=== PATIENT | female | born 1990 ===

== ENCOUNTER 2019-10-22 22:00 | Outpatient (CLI) | payer SELFPAY ==
[2019-10-22 22:54] VITALS: BP 112/70
== END 2019-10-23 00:30 | disposition home or self-care (01) ==
LOC: TRG 22:00 → APU 22:02 → TRG 10-23 00:30
PROVIDERS: ATTEND Obstetrics & Gynecology
DX: O47.1 False labor at or after 37 completed weeks of gestation (principal); Z3A.39 39 weeks gestation of pregnancy
CPT/HCPCS: 59025

== ENCOUNTER 2019-10-25 04:14 | Inpatient (IN) | payer MEDICAID, OTHER ==
[2019-10-25] MEDS ORDERED: TERBUTALINE 1 MG/1 ML INJ SUB-Q PRN (05:14)
[2019-10-25] MEDS ORDERED: TERBUTALINE 1 MG/1 ML INJ IVP PRN (05:14)
[2019-10-25] MEDS ORDERED: ePHEDrine SULFATE 50 MG/1 ML INJ IV PRN ×2 (05:14→08:57)
[2019-10-25] MEDS ORDERED: BUTORPHANOL 2 MG/1 ML INJ IV PRN ×2 (05:14)
[2019-10-25] MEDS ORDERED: MINERAL OIL 30 ML ORAL LIQD PO PRN (05:14)
[2019-10-25] MEDS ORDERED: fentaNYL 100 MCG/2 ML INJ IV PRN (05:14)
[2019-10-25] MEDS ORDERED: LIDOCAINE (2%) 20 MG/1 ML VIAL 20 ML MDV INFILTRATI ONE (05:14)
[2019-10-25] MEDS ORDERED: AMPICILLIN/NS 2 GM/100 ML 2 GM/100 ML BAG IV ONE (05:18)
[2019-10-25] MEDS ORDERED: OXYTOCIN DRIP 30 UNITS/500 ML BAG IV SCH ×2 (06:00)
[2019-10-25] MEDS ORDERED: OXYTOCIN 20 UNIT/1000ML DRIP 20 UNITS/1,000 ML BAG IV SCH (06:00)
[2019-10-25] MEDS ORDERED: LACTATED RINGERS 1,000 ML IV SCH (06:00)
--- NOTE | 2019-10-25 06:35 | History and Physical Report ---
History of Present Illness Date of examination: 10/25/19 Date of admission: 10/25/19 05:14 Chief complaint: Pt with c/o uc. She denies vag bleeding or leakage of vag fluids. History of present illness: 28 y/o female presented to the triage with c/o uc. Pt states her LMP was 01/08/19. She initiated her care at [facility] at 5 mos gestation per pt. She denies any problems throughout her preg. Med/ surg/ social hx unremarkable per pt. Pt states her mother has DM. Pt's records are unavailable. Past History Past Surgical History: no surgical history Family/Genetic History: diabetes Social history: no significant social history - Obstetrical History Expected Date of Delivery: 10/25/19 Actual Gestation: 40 Week(s) 0 Day(s) : 1 Para: 0 Hx # Term Pregnancies: 0 Number of Pregnancies: 0 Spontaneous Abortions: 0 Induced : 0 Number of Living Children: 0 Medications and Allergies Allergies Allergy/AdvReac Type Severity Reaction Status Date / Time No Known Allergies Allergy Verified 10/25/19 05:19 Active Meds: Active Medications Butorphanol Tartrate (Stadol) 1 mg IV Q2H PRN PRN Reason: Pain, Moderate(4-6) LABOR PAIN Butorphanol Tartrate (Stadol) 2 mg IV Q2H PRN PRN Reason: Pain , Severe (7-10) Ephedrine Sulfate (Ephedrine Sulfate) 10 mg IV Q2M PRN PRN Reason: Hypotension Fentanyl (Sublimaze) 100 mcg IV Q2H PRN PRN Reason: Pain,Severe (7-10) LABOR PAIN Oxytocin/Sodium Chloride (Pitocin/Ns 20 Unit/1000ml Drip) 20 units in 1,000 mls @ 125 mls/hr IV DIRECT VANI Oxytocin/Sodium Chloride (Pitocin/Ns 30 Unit/500ml) 30 units in 500 mls @ 1 mls/hr IV TITR VANI; Protocol Oxytocin/Sodium Chloride (Pitocin/Ns 30 Unit/500ml) 30 units in 500 mls @ 2 mls/hr IV TITR VANI; Protocol Lactated Ringer's (Lactated Ringers) 1,000 mls @ 125 mls/hr IV DIRECT VANI Ampicillin Sodium (Ampicillin/Ns 1 Gm/50 Ml) 1 gm in 50 mls @ 100 mls/hr IV Q4HR VANI; Protocol Mineral Oil (Mineral Oil) 30 ml PO QHS PRN PRN Reason: Constipation Terbutaline Sulfate (Brethine) 0.25 mg SUB-Q ONCE PRN PRN Reason: Hyperstimulation/Hypertonicity Terbutaline Sulfate (Brethine) 0.25 mg IVP ONCE PRN PRN Reason: Hyperstimulation/Hypertonicity Review of Systems All systems: negative Genitourinary: normal appearance Rectal Exam: deferred - Vital Signs Vital signs: Vital Signs Pulse BP Pulse Ox 69 113/80 98 10/25/19 04:31 10/25/19 04:31 10/25/19 04:31 Temp Pulse Resp BP Pulse Ox 98.4 F 67 18 117/73 98 10/25/19 05:52 10/25/19 05:53 10/25/19 05:52 10/25/19 05:53 10/25/19 05:01 - Physical Exam Breasts: Positive: normal Abdomen: Positive: normal appearance, soft, other (gravid) Genitourinary (Female): Positive: normal external genitalia, normal perenium Vulva: both: normal Vagina: Positive: normal moisture Uterus: Positive: normal size, normal contour, other (gravid) Adnexa: both: normal Anus/Rectum: Positive: normal perianal skin Extremities: Positive: normal - Obstetrical FHR: category 1 Uterine Contraction Monitor Mode: External Cervical Dilatation: 6 (per nurse) Cervical Effacement Percentage: 80 (per nurse) station: -3 Uterine Contraction Frequency (min): irreg Uterine Contraction Pattern: Irregular Uterine Tone Measurement Phase: Resting Uterine Contraction Intensity: Moderate Results All other labs normal. Assessment and Plan A: IUP at term CAT I FHT GBS unknown P: Admit to L&D Continuous monitoring Pain med prn ABT per GBS protocal Anticipate - Patient Problems (1) Supervision of normal IUP (intrauterine ) in primigravida Current Visit: Yes Status: Acute (2) GBS screening not performed Current Visit: Yes Status: Acute
[2019-10-25 07:22] LABS: Hematocrit 40.2 % (30.3-42.9); Hemoglobin 14.1 gm/dl (10.1-14.3); Mean Corpuscular HGB Conc 35 % (30-34); Mean Corpuscular Volume 90 fl (79-97); Platelet Count 186 K/mm3 (140-440); Red Blood Count 4.46 M/mm3 (3.65-5.03)
[2019-10-25] MEDS ORDERED: DEXMEDETOMIDINE 200 MCG/2 ML VIAL IV ONE (08:17)
[2019-10-25] MEDS ORDERED: NALOXONE 2 MG/2 ML INJ IV PRN (08:57)
--- NOTE | 2019-10-25 09:00 | Anesthesia Consultation ---
Anesthesia Consult and Med Hx Date of service: 10/25/19 - Airway Anesthetic Teeth Evaluation: Good ROM Head & Neck: Adequate Mental/Hyoid Distance: Adequate Mallampati Class: Class II Intubation Access Assessment: Good - Pulmonary Exam CTA: Yes - Cardiac Exam Cardiac Exam: RRR - Pre-Operative Health Status ASA Pre-Surgery Classification: ASA2 Proposed Anesthetic Plan: Epidural - Pulmonary Hx Smoking: No Hx Asthma: No Hx Respiratory Symptoms: No SOB: No COPD: No Home Oxygen Therapy: No Hx Pneumonia: No Hx Sleep Apnea: No - Cardiovascular System Hx Hypertension: No Hx Coronary Artery Disease: No Hx Heart Attack/AMI: No Hx Angina: No Hx Percutaneous Transluminal Coronary Angioplasty (PTCA): No Hx Cardia Arrhythmia: No Hx Pacemaker: No Hx Internal Defibrillator: No Hx Valvular Heart Disease: No Hx Heart Murmur: No Hx Peripheral Vascular Disease: No - Central Nervous System Hx Neuromuscular Disorder: No Hx Seizures: No CVA: No Hx Back Pain: No Hx Psychiatric Problems: No - Gastrointestinal Hx Ulcer: No Hx Gastroesophageal Reflux Disease: No - Endocrine Hx Renal Disease: No Hx End Stage Renal Disease: No Hx Cirrhosis: No Hx Liver Disease: No Hx Insulin Dependent Diabetes: No Hx Non-Insulin Dependent Diabetes: No Hx Thyroid Disease: No Hx Hypothyroidism: No Hx Hyperthyroidism: No - Hematic Hx Anemia: No Hx Sickle Cell Disease: No - Other Systems Hx Alcohol Use: No Hx Substance Use: No Hx Cancer: No Hx Obesity: No
[2019-10-25] MEDS: fentaNYL-BUPIV 2 MCG/ML-0.125% 200 MCG/100 ML BAG EPIDURAL SCH ×2 (09:16→10:54)
[2019-10-25] MEDS ORDERED: AMPICILLIN/NS 1 GM/50 ML 1 GM/50 ML BAG IV SCH (10:00)
--- NOTE | 2019-10-25 10:36 | Progress Note ---
Assessment and Plan - Patient Problems (1) Active labor at term Current Visit: Yes Status: Acute Plan to address problem: Continue routine labor orders Continue Pitocin as tolerated Anticipate (2) GBS screening not performed Current Visit: Yes Status: Acute Plan to address problem: Continue GBS prophylaxis per protocol Subjective - Subjective Date of service: 10/25/19 Principal diagnosis: Active labor Interval history: See admission H & P Patient reports: loss of fluid, movement normal, contractions (comfortable with epidural), no vaginal bleeding Objective - Vital Signs Vital Signs: Vital Signs - 12hr 10/25/19 10/25/19 10/25/19 04:31 04:39 04:41 Temperature Pulse Rate 69 78 66 Respiratory 18 Rate Blood Pressure 113/80 Blood Pressure 113/80 [Right] O2 Sat by Pulse 98 96 97 Oximetry 10/25/19 10/25/19 10/25/19 04:46 04:51 04:56 Temperature Pulse Rate 82 87 77 Respiratory Rate Blood Pressure Blood Pressure [Right] O2 Sat by Pulse 96 97 98 Oximetry 10/25/19 10/25/19 10/25/19 05:01 05:52 05:53 Temperature 98.4 F Pulse Rate 72 67 67 Respiratory 18 Rate Blood Pressure 117/73 Blood Pressure 117/73 [Right] O2 Sat by Pulse 98 Oximetry 10/25/19 10/25/19 10/25/19 07:20 07:21 07:30 Temperature 98.5 F Pulse Rate 82 82 Respiratory 18 18 Rate Blood Pressure 113/72 Blood Pressure 113/72 [Right] O2 Sat by Pulse Oximetry 10/25/19 10/25/19 10/25/19 07:53 08:19 08:21 Temperature Pulse Rate 94 H 121 H 86 Respiratory Rate Blood Pressure 125/71 115/73 Blood Pressure [Right] O2 Sat by Pulse 73 L Oximetry 10/25/19 10/25/19 10/25/19 08:22 08:23 08:26 Temperature Pulse Rate 92 H 78 85 Respiratory Rate Blood Pressure 116/75 113/68 Blood Pressure [Right] O2 Sat by Pulse 100 Oximetry 10/25/19 10/25/19 10/25/19 08:28 08:29 08:30 Temperature Pulse Rate 83 81 Respiratory 18 Rate Blood Pressure 112/69 Blood Pressure [Right] O2 Sat by Pulse 100 Oximetry 10/25/19 10/25/19 10/25/19 08:31 08:33 08:35 Temperature Pulse Rate 78 80 82 Respiratory Rate Blood Pressure 112/69 111/74 109/73 Blood Pressure [Right] O2 Sat by Pulse 100 Oximetry 10/25/19 10/25/19 10/25/19 08:37 08:38 08:39 Temperature Pulse Rate 89 82 103 H Respiratory Rate Blood Pressure 114/69 114/72 Blood Pressure [Right] O2 Sat by Pulse 98 Oximetry 10/25/19 10/25/19 10/25/19 08:43 08:48 08:53 Temperature Pulse Rate 73 69 72 Respiratory Rate Blood Pressure Blood Pressure [Right] O2 Sat by Pulse 99 97 97 Oximetry 10/25/19 10/25/19 10/25/19 08:58 09:03 09:08 Temperature Pulse Rate 80 86 78 Respiratory Rate Blood Pressure Blood Pressure [Right] O2 Sat by Pulse 96 96 96 Oximetry 10/25/19 10/25/19 10/25/19 09:10 09:13 09:18 Temperature Pulse Rate 60 75 59 L Respiratory Rate Blood Pressure 107/62 Blood Pressure [Right] O2 Sat by Pulse 96 96 Oximetry 10/25/19 10/25/19 10/25/19 09:23 09:28 09:33 Temperature Pulse Rate 60 72 58 L Respiratory Rate Blood Pressure Blood Pressure [Right] O2 Sat by Pulse 96 96 97 Oximetry 10/25/19 10/25/19 10/25/19 09:38 09:41 09:43 Temperature Pulse Rate 72 54 L 59 L Respiratory Rate Blood Pressure 103/57 Blood Pressure [Right] O2 Sat by Pulse 96 95 Oximetry 10/25/19 10/25/19 10/25/19 09:48 09:53 09:58 Temperature Pulse Rate 58 L 62 74 Respiratory Rate Blood Pressure Blood Pressure [Right] O2 Sat by Pulse 96 96 96 Oximetry 10/25/19 10/25/19 10/25/19 10:03 10:08 10:10 Temperature Pulse Rate 59 L 71 62 Respiratory Rate Blood Pressure 109/68 Blood Pressure [Right] O2 Sat by Pulse 97 97 Oximetry 10/25/19 10/25/19 10/25/19 10:13 10:18 10:23 Temperature Pulse Rate 72 57 L 60 Respiratory Rate Blood Pressure Blood Pressure [Right] O2 Sat by Pulse 97 98 99 Oximetry 10/25/19 10:28 Temperature Pulse Rate 73 Respiratory Rate Blood Pressure Blood Pressure [Right] O2 Sat by Pulse 98 Oximetry - Exam Breasts: deferred Cardiovascular: Regular rate Lungs: Normal air movement FHR: category 1 Uterine Contraction Monitor Mode: External Cervical Dilatation: 6 (at 0930 per RN) Cervical Effacement Percentage: 80 station: -3 Uterine Contraction Frequency (min): 2 Uterine Contraction Pattern: Regular Uterine Tone Measurement Phase: Resting Uterine Contraction Intensity: Moderate - Labs Labs: Abnormal Labs 10/25/19 06:56 WBC 11.4 H MCHC 35 H Laboratory Results - last 24 hr 10/25/19 10/25/19 06:56 07:01 WBC 11.4 H RBC 4.46 Hgb 14.1 Hct 40.2 MCV 90 MCH 32 MCHC 35 H RDW 14.0 Plt Count 186 Blood Type O POSITIVE Antibody Screen Negative
--- NOTE | 2019-10-25 10:56 | Event Note ---
Date: 10/25/19 AROM of clear fluids, tolerated well. Cervical exam: .
[2019-10-25] MEDS ORDERED: OXYTOCIN 10 UNIT/1 ML INJ ONE (13:32)
[2019-10-25] MEDS ORDERED: miSOPROStol 200 MCG TAB ONE (13:38)
--- NOTE | 2019-10-25 13:42 | Progress Note ---
Labor Epidural - Labor Epidural Start Time: 08:17 Stop Time: 08:29 Performed by:: MIGUEL ANTUNEZ Procedure: Patient is requesting a laboring epidural for laboring pain. Patient IDed, H&P reviewed, all questions and concerns were answered, and consent was signed. Timeout was performed at bedside. Patient in sitting position. Sterile prep and drape was performed. [3] ml of 1% lidocaine skin wheal at L[3]- L [4]. 18- gauge Touhy epidural needle was advanced to loss of resistance with air technique. Negative CSF negative blood. Epidural catheter advanced to [10] centimeters. [negative] Aspiration [negative] test dose. Sterile dressing applied. Patient tolerated procedure.
[2019-10-25] MEDS ORDERED: WITCH HAZEL/ GLYCERIN PAD TP PRN (13:58)
[2019-10-25] MEDS ORDERED: PROMETHAZINE 25 MG TAB PO PRN (13:58)
[2019-10-25] MEDS ORDERED: ONDANSETRON 4 MG/2 ML INJ IV PRN (13:58)
[2019-10-25] MEDS ORDERED: diphenhydrAMINE 25 MG CAP PO PRN (13:58)
[2019-10-25] MEDS ORDERED: LANOLIN/ZINC/DIMETHICONE (LANSINOH) 7 GM TP PRN (13:58)
[2019-10-25] MEDS ORDERED: MAGNESIUM HYDROXIDE (MOM) ORAL LIQD UDC PO PRN (13:58)
[2019-10-25] MEDS ORDERED: oxyCODONE /ACETAMINOPHEN 5-325MG TAB PO PRN (13:58)
--- NOTE | 2019-10-25 14:06 | Procedure Note ---
OB Delivery Note - Delivery Date of Delivery: 10/25/19 (4729) Surgeon: SCOTTY FRANCIS (CNM) Estimated blood loss: other (400cc) - Vaginal Delivery presentation: vertex Delivery position: OA (MARIE) Delivery induction: none Delivery augmentation: rupture of membranes (AROM - 1050), pitocin Delivery monitor: external FHT, external uterine Route of delivery: Delivery placenta: spontaneous (1331) Delivery cord: 3 umbilical vessels Episiotomy: midline (Repaired) Delivery repair: vicryl (3.0 CT-1) Anesthesia: epidural Delivery comments: of alert, viable female , placed directly on maternal abdomen followed by spontaneous cry. Cord double clamped, cut by FOB after cessation of pulsation. Cord blood collected. Placenta spontaneously delivered, saundra, disposed per hospital policy. IM Pitocin 10units IM x 1 dose given. Uterus boggy, became firm with massage @ U -3. Hemostasis maintained. Perineum with midline episiotomy, repaired. Mother and baby safe, stable and left in care of RN. - Infant A at 1 minute: 8 at 5 minutes: 9 Gender: Female (Weight: 3348 gms (7lbs 6ozs) 19.5 inches)
[2019-10-25] MEDS ORDERED: OXYTOCIN 10 UNIT/1 ML INJ IM ONE (14:57)
[2019-10-25] MEDS: IBUPROFEN 600 MG TAB PO SCH (17:03)
[2019-10-25] MEDS: FERROUS SULFATE 325 MG TAB PO SCH (22:16)
[2019-10-26 05:47] LABS: Hematocrit 31.5 % (30.3-42.9); Hemoglobin 10.8 gm/dl (10.1-14.3)
[2019-10-26] MEDS: PRENATAL VIT27-FE FUMARATE-FOLIC ACID VIT TAB PO SCH (08:53)
[2019-10-26] MEDS: IBUPROFEN 600 MG TAB PO SCH ×3 (08:53→19:03)
[2019-10-26] MEDS: FERROUS SULFATE 325 MG TAB PO SCH ×2 (08:53→22:29)
[2019-10-26 11:19] LABS: Amphetamine Screen,Urine PRESUMPTIVE NEGATIVE; Benzodiazepines Screen,Urine PRESUMPTIVE NEGATIVE; Cannabinoid Screen,Urine PRESUMPTIVE NEGATIVE; Cocaine Screen,Urine PRESUMPTIVE NEGATIVE; Methadone Screen,Urine PRESUMPTIVE NEGATIVE; Opiate Screen,Urine PRESUMPTIVE NEGATIVE
--- NOTE | 2019-10-26 12:58 | Progress Note ---
Assessment and Plan A: day 1 S/P . Anemia. P: Iron supplementation. Anticipate discharge tomorrow. Subjective - Subjective Date of service: 10/26/19 Principal diagnosis: day 1 S/P Interval history: Day 1 S/P Patient reports: appetite normal, voiding normally, pain well controlled, flatus, ambulating normally, no dizzy ambulation, no nauseated : doing well Objective - Vital Signs Latest vital signs: Vital Signs Temp Pulse Resp BP BP Pulse Ox 10/26/19 08:23 98.0 F 14 103/64 10/26/19 01:08 98.3 F 89 18 98/63 98 10/25/19 22:01 98.7 F 94 H 18 93/59 98 10/25/19 17:03 18 10/25/19 16:00 97.4 F L 95 H 18 100/63 98 10/25/19 15:23 94 H 98 10/25/19 15:18 83 108/66 98 10/25/19 15:13 95 H 98 10/25/19 15:08 95 H 97 10/25/19 15:03 119 H 105/60 98 10/25/19 14:58 120 H 98 10/25/19 14:53 115 H 98 10/25/19 14:48 92 H 102/51 97 10/25/19 14:43 116 H 99 10/25/19 14:38 89 97 10/25/19 14:34 112 H 103/55 10/25/19 14:33 112 H 97 10/25/19 14:28 120 H 97 10/25/19 14:23 114 H 98 10/25/19 14:18 105 H 101/69 98 10/25/19 14:13 82 100 10/25/19 14:08 93 H 99 10/25/19 14:04 111 H 108/65 10/25/19 14:03 113 H 99 10/25/19 13:58 107 H 98 10/25/19 13:53 106 H 99 10/25/19 13:48 149 H 82 L 10/25/19 13:47 56 L 87 10/25/19 13:13 131 H 146/65 Intake and Output 10/25/19 10/26/19 10/26/19 23:59 07:59 15:59 Intake Total 854 887 9012 Output Total 450 Balance -30 660 1600 Intake: Oral 480 1600 Intake, Free Water 420 180 Output: Urine 450 Void 450 Other: Total, Intake Amount 480 800 Total, Output Amount 200 Voiding Method Toilet # Voids Void 1 1 # Bowel Movements 0 - Exam Cardiovascular: Present: Regular rate, Normal S1, Normal S2 Lungs: Present: Clear to auscultation Abdomen: Present: normal appearance, soft, normal bowel sounds. Absent: distention, tenderness, guarding, rigidity Uterus: Present: normal, firm, fundal height below umbilicus. Absent: bogginess, tenderness Extremities: Present: normal. Absent: tenderness, edema
[2019-10-27] MEDS: PRENATAL VIT27-FE FUMARATE-FOLIC ACID VIT TAB PO SCH (10:32)
[2019-10-27] MEDS: FERROUS SULFATE 325 MG TAB PO SCH (10:32)
--- NOTE | 2019-10-27 11:19 | Progress Note ---
Assessment and Plan A: day 2 S/P . Anemia. P: Discharge patient home today. Discussed with patient discharge instructions and warning signs. Advised patient to avoid intercourse, lifting, and heavy housework. Advised patient to continue taking her vitamins and iron supplements at home. Advised patient to follow up at [facility] in 6 weeks for exam. Patient voiced understanding of all instructions. Subjective - Subjective Date of service: 10/27/19 Principal diagnosis: day 2 S/P Interval history: Day 2 S/P . Patient desires discharge today. Doing well. No complaints. Patient reports: appetite normal, voiding normally, pain well controlled, flatus, ambulating normally, no dizzy ambulation, no nauseated : doing well Objective - Vital Signs Latest vital signs: Vital Signs Temp Pulse Resp BP BP Pulse Ox 10/27/19 09:25 98.1 F 92 H 14 106/61 97 10/26/19 23:43 98.5 F 68 20 91/55 100 10/26/19 16:50 97.7 F 85 12 101/65 98 Intake and Output 10/26/19 10/27/19 10/27/19 23:59 07:59 15:59 Intake Total 5185 005 2342 Balance 0653 207 8702 Intake: Oral 8784 855 9174 Intake, Free Water 240 Other: Total, Intake Amount 800 240 800 Voiding Method Toilet Toilet Toilet # Voids 1 1 Void 1 1 1 # Bowel Movements 0 - Exam Cardiovascular: Present: Regular rate, Normal S1, Normal S2, No murmurs Lungs: Present: Clear to auscultation Abdomen: Present: normal appearance, soft. Absent: distention, tenderness, guarding, rigidity Uterus: Present: normal, firm, fundal height below umbilicus. Absent: bogginess, tenderness Extremities: Present: normal. Absent: tenderness, edema
--- NOTE | 2019-10-27 11:24 | Discharge Summary ---
Providers - Providers Date of Admission: 10/25/19 05:14 Date of discharge: 10/27/19 Attending physician: JADEN CINTRON MD Primary care physician: JADEN CINTRON MD Hospitalization Reason for admission: active labor Delivery: Episiotomy: midline Other procedures: none complications: none Discharge diagnosis: IUP at term delivered [place] baby: female Pertinent studies: Labs Hospital course: Normal hospital course Condition at discharge: Good Disposition: DC-01 TO HOME OR SELFCARE - Discharge Diagnoses (1) Term delivered Status: Acute (2) Anemia Status: Acute Plan - Provider Discharge Summary Activity: routine, no sex for 6 weeks, no heavy lifting 4 weeks, no strenuous exercise Diet: routine Instructions: routine Additional instructions: Continue taking your vitamins and iron supplements at home. Follow up at [facility] in 6 weeks. Call your doctor immediately for: * Fever > 100.5 * Heavy vaginal bleeding ( >1 pad per hour) * Severe persistent headache * Shortness of breath * Reddened, hot, painful area to leg or breast - Follow up plan Follow up: [facility] [Referring] - 6 Weeks
[2019-10-27] MEDS: IBUPROFEN 600 MG TAB PO SCH (12:15)
[2019-10-27] MEDS ORDERED: DIPHtheria,PERTUSSIS(ACELL),TETANUS VACCINE/PF 0.5 ML VIAL IM ONE (13:00)
[2019-10-27] MEDS ORDERED: MEASLES, MUMPS & RUBELLA 12,500 UNIT/0.5 ML VACCINE SUB-Q ONE (13:32)
[2019-10-27 16:52] VITALS: BP 102/67
== END 2019-10-27 16:44 | disposition home or self-care (01) | DRG 807 ==
LOC: TRG 04:14 → APU 04:23 → LD 05:14 → TRG 05:14 → OB 16:21
PROVIDERS: ADMIT Obstetrics & Gynecology; ATTEND Obstetrics & Gynecology
PROC: 10E0XZZ Delivery of Products of Conception, External Approach (ICD-10-PCS; principal; 2019-10-25)
PROC: 3E0234Z Introduction of Serum, Toxoid and Vaccine into Muscle, Percutaneous Approach (ICD-10-PCS; 2019-10-25)
PROC: 3E0134Z Introduction of Serum, Toxoid and Vaccine into Subcutaneous Tissue, Percutaneous Approach (ICD-10-PCS; 2019-10-25)
PROC: 3E0R3BZ Introduction of Anesthetic Agent into Spinal Canal, Percutaneous Approach (ICD-10-PCS; 2019-10-25)
PROC: 00HU33Z Insertion of Infusion Device into Spinal Canal, Percutaneous Approach (ICD-10-PCS; 2019-10-25)
PROC: 10907ZC Drainage of Amniotic Fluid, Therapeutic from Products of Conception, Via Natural or Artificial Opening (ICD-10-PCS; 2019-10-25)
PROC: 0W8NXZZ Division of Female Perineum, External Approach (ICD-10-PCS; 2019-10-25)
DX: O90.81 Anemia of the puerperium (principal); Z37.0 Single live birth; Z3A.40 40 weeks gestation of pregnancy; Z23 Encounter for immunization; D64.9 Anemia, unspecified
CPT/HCPCS: 36415; 80307; 85014; 85018; 85027; 86592; 86706; 86762; 86850; 86900; 86901; 87806; 90471; 90707; 90715; G0378; J0290; J2590; J3010; J3490; J7120